=== PATIENT | female | born 1960 | race Caucasian/White ===

== ENCOUNTER → 2020-10-30 | Outpatient (CLI) | payer OTHER | LOC: ECHO 12:27 | DX: R94.31 Abnormal electrocardiogram [ECG] [EKG] (principal); I51.7 Cardiomegaly | CPT/HCPCS: ECHO; 93306 ==

== ENCOUNTER → 2020-12-08 | Outpatient (CLI) | payer OTHER ==
[2020-12-08 17:22] LABS: HEMOGLOBIN 14.7 gm/dl (12.3-15.3); RED BLOOD COUNT 4.58 M/UL (4.00-5.10); WHITE BLOOD COUNT 9.9 K/UL (4.5-11.0)
[2020-12-08 17:46] LABS: BUN/CREATININE RATIO 16 (0-10)
== END ==
LOC: LAB 16:58
PROVIDERS: Family Medicine
DX: R30.0 Dysuria (principal); R11.0 Nausea; R10.31 Right lower quadrant pain
CPT/HCPCS: 36415; 80053; 81001; 85027; 87086

== ENCOUNTER → 2020-12-09 | Outpatient (CLI) | payer OTHER | LOC: KOH-I 10:27 | DX: R11.0 Nausea (principal); R10.31 Right lower quadrant pain | CPT/HCPCS: 74176 ==

== ENCOUNTER → 2021-12-20 | Outpatient (CLI) | payer OTHER | LOC: EXRD 14:00 | DX: R05.3 Chronic cough (principal) | CPT/HCPCS: 71046 ==